=== PATIENT | male | born 1955 | race Hispanic/Latino ===

== ENCOUNTER 2018-12-13 09:27 | Outpatient (CLI) | payer MEDICARE ==
--- NOTE | 2018-12-13 11:07 | XRay Report ---
CHEST TWO VIEWS: 12/13/18 09:27:00 CLINICAL: Bilateral rales. COMPARISON: 08/30/15 FINDINGS: The heart is upper limits of normal in size. Mild central vascular congestion. The lungs are normally expanded and clear except for a small irregular right upper lobe nodular lung opacity identified only on the frontal view. No airspace disease or pleural effusion. Mild blunting of the left costophrenic angle as seen on the last exam.Median sternotomy wires. Mild aortic calcification. IMPRESSION: A subcentimeter right upper lobe lung nodule. Recommend CT chest without contrast.No CHF or pneumonia.
== END 2018-12-13 09:28 | disposition home or self-care (01) ==
LOC: SPVIMAG 09:27
PROVIDERS: ATTEND Internal Medicine
DX: R91.1 Solitary pulmonary nodule (principal)
CPT/HCPCS: 71046